=== PATIENT | male | born 1965 | race Hispanic/Latino ===

== ENCOUNTER → 2019-01-12 | Day surgery (SDC) | payer OTHER ==
[~2019-01-12] MED LIST: ACETAMINOPHEN 1000 MG/100 ML IV ONE; BALANCED SALT SOLN (OPTH) 15 ML BTL IO ONE; FENTANYL CITRATE/PF 100MCG/2 ML INJ ONE; KETOROLAC TROMETHAMINE 30 MG/ML VIAL ONE; LIDOCAINE 2%/ EPINEPHRINE 20ML MDV ONE; MIDAZOLAM HCL 2 MG/2 ML VIAL ONE; NEOMYCIN/POLYMYXIN/DEX (OPTH) 3.5 GM TUBE ONE; POVIDONE IODINE 5% (OPTH) 30 ML BTL ONE
--- OUTSIDE RECORDS SUMMARY | 2019-01-12 14:33 | XMS REPORT | Summary of Care ---
Author Author [facility] - Health Organization [facility] - Health Address Unknown Phone Unavailable Care Team Providers Care Cell Attendant Name Role Phone Toby Gomez PCP Reason for Visit * Reason Comments Forms clearance for eye surgery Encounter Details Care Team Description Date Type Department Everardo Jang MD [address] [facility] [id number] [place] [address] [phone] Forms (clearance for eye surgery) 12/25/2018 Telephone [facility], [address] [address] Allergies No Known Allergiesdocumented as of this encounter (statuses as of 12/28/2018) Medications End Date Status Medication Sig Dispensed Refills Start Date Active cyclobenzaprine 10 mg Take 1 tablet 30 tablet 0 tabletIndications: Neck by mouth 3 9 pain (three) times daily. Active meloxicam (MOBIC) 15 mg Take 1 tablet 30 tablet 1 tabletIndications: Neck by mouth 9 pain daily. Active Diclofenac Sodium Apply to 100 g 0 (VOLTAREN) 1 % area(s) every 9 gelIndications: Neck pain 6 (six) hours as needed (knee pain). documented as of this encounter (statuses as of 12/28/2018) Active Problems No known active problemsdocumented as of this encounter (statuses as of 12/28/2018) Immunizations Name Administration Dates Next Due Influenza Virus Vaccine 07/10/2018 Quad .5 mL IM 6+ MO Tdap 07/29/2018 documented as of this encounter Social History Date Tobacco Use Types Packs/Day Years Used Never Smoker Smokeless Tobacco: Never Used Drinks/Week oz/Week Comments Alcohol Use socially Yes Sex Assigned at Date Recorded Not on file Industry Job Start Date Occupation Not on file Not on file Not on file Travel End Travel History Travel Start No recent travel history available. documented as of this encounter Last Filed Vital Signs Not on filedocumented in this encounter Plan of Treatment Health Maintenance Due Date Last Done Comments Zoster Recombinant 2016 Vaccine (SHINGRIX) (1 of 2) INFLUENZA VACCINE (#1) 2019 07/10/2018 COLONOSCOPY 02/20/2026 02/21/2016 DTaP,Tdap,and Td Vaccines 07/29/2028 07/29/2018 (2 - Td) PNEUMOCOCCAL 0-64 YEARS Aged Out No longer eligible based COMBINED SERIES on patient's age to complete this topic documented as of this encounter Results Not on filedocumented in this encounter Insurance Type Payer Benefit Subscriber ID Effective Phone Address Plan / Dates Group O [facility] [id number] 2017-P [phone] [facility] [address] [place] [address] documented as of this encounter
--- OUTSIDE RECORDS SUMMARY | 2019-01-12 14:33 | XMS REPORT | Summary of Care ---
Author Author [facility] - Health Organization [facility] - Health Address Unknown Phone Unavailable Care Team Providers Care Wafer Cutter Name Role Phone Toby Gomez PCP Reason for Referral * (Routine) Referred By Contact Referred To Contact Status Reason Specialty Diagnoses / Procedures Everardo Jang MD [address] [facility] [place] [address] Closed Cardiology Diagnoses Abnormal EKG Cardiac murmur P rocedures ECHO ROUTINE W/DOPPLER COLOR GA ECHO HEART XTHORACIC,COMPLETE W DOPPLER * (Routine) Referred By Contact Referred To Contact Status Reason Specialty Diagnoses / Procedures Everardo Jang MD [address] [facility] [place] [address] Closed Cardiology Diagnoses Abnormal EKG Cardiac murmur P rocedures ECHO ROUTINE W/DOPPLER COLOR GA ECHO HEART XTHORACIC,COMPLETE W DOPPLER Reason for Visit * (Routine) Referred By Contact Referred To Contact Status Reason Specialty Diagnoses / Procedures Everardo Jang MD [id number] [place] [address] Closed Cardiology Diagnoses Abnormal EKG Cardiac murmur P rocedures ECHO ROUTINE W/DOPPLER COLOR GA ECHO HEART XTHORACIC,COMPLETE W DOPPLER Encounter Details Care Team Description Date Type Department Everardo Jang MD [address] [place] [address] [phone] Echo, Clc-Bls Abnormal EKG; Cardiac murmur 12/04/2018 Hospital [facility] Health Encounter Echocardiograph Lab, [address] [place] [address] Allergies No Known Allergiesdocumented as of this encounter (statuses as of 12/05/2018) Medications End Date Status Medication Sig Dispensed [...] as of this encounter (statuses as of 12/05/2018) Active Problems No known active problemsdocumented as of this encounter (statuses as of 12/05/2018) Immunizations Name Administration Dates Next Due Influenza [...] of this encounter Last Filed Vital Signs Reading Time Taken Comments Vital Sign 104/54 12/04/2018 3:26 PM CDT Blood Pressure 44 12/04/2018 3:26 PM CDT Pulse - - Temperature - - Respiratory Rate - - Oxygen Saturation - - Inhaled Oxygen Concentration 71.2 kg (157 lb) 12/04/2018 3:26 PM CDT Weight 167.6 cm (5' 6") 12/04/2018 3:26 PM CDT Height 25.34 12/04/2018 3:26 PM CDT Body Mass Index documented in this encounter Plan of Treatment Health Maintenance Due Date Last Done Comments Zoster Recombinant 2016 Vaccine (SHINGRIX) (1 of 2) INFLUENZA VACCINE 01/10/2019 07/10/2018 COLONOSCOPY 02/20/2026 02/21/2016 DTaP,Tdap,and Td Vaccines 07/29/2028 07/29/2018 (2 - Td) PNEUMOCOCCAL 0-64 YEARS Aged Out No longer eligible based COMBINED SERIES on patient's age to complete this topic documented as of this encounter Procedures Comments Procedure Name Priority Date/Time Associated Diagnosis ECHO ROUTINE W/DOPPLER Routine 12/04/2018 Abnormal EKG COLOR 3:35 PM CDT Cardiac murmur documented in this encounter Results * ECHO ROUTINE W/DOPPLER COLOR (12/04/2018 3:35 PM CDT) Specimen Performing Organization Address [facility] documented in this encounter Visit Diagnoses Diagnosis Abnormal EKG Nonspecific abnormal electrocardiogram (ECG) (EKG) Cardiac murmur Undiagnosed cardiac murmurs documented in this encounter Insurance Type Payer Benefit Subscriber ID Effective Phone Address Plan / Dates Group [facility] [id number] 2017-P [phone] [address] [facility] [id number] [place] [address] documented as of this encounter
--- OUTSIDE RECORDS SUMMARY | 2019-01-12 14:33 | XMS REPORT | Summary of Care ---
Author Author [facility] - Health Organization [facility] - Health Address Unknown Phone Unavailable Care Team Providers Care Bus Escort Name Role Phone Toby Gomez PCP Reason for Visit * Reason Comments Forms surgery clearance Encounter Details Care Team Description Date Type Department Everardo Jang MD [address] [facility] [id number] [place] [address] [phone] Forms (surgery clearance) 12/30/2018 Telephone [facility] Cardiology, [address] [phone] Allergies No Known Allergiesdocumented as of this encounter (statuses as of 12/30/2018) Medications End Date Status Medication Sig Dispensed [...] as of this encounter (statuses as of 12/30/2018) Active Problems No known active problemsdocumented as of this encounter (statuses as of 12/30/2018) Immunizations Name Administration Dates Next Due Influenza [...] Phone Address Plan / Dates Group O [facility] [id number] 2017-P [phone] [facility] [address] [place] [address] documented as of this encounter
--- OUTSIDE RECORDS SUMMARY | 2019-01-12 14:33 | XMS REPORT | Summary of Care ---
Author Author [facility] - Health Organization [facility] - Health Address Unknown Phone Unavailable Care Team Providers Care Land Surveyor Manager Name Role Phone Toby Gomez PCP Reason for Visit * Reason Comments Results Encounter Details Care Team Description Date Type Department Everardo Jang MD [address] [facility] [id number] [place], [place] [address] Results 12/15/[address] [phone] Allergies No Known Allergiesdocumented as of this encounter (statuses as of 12/15/2018) Medications End Date Status Medication Sig Dispensed [...] as of this encounter (statuses as of 12/15/2018) Active Problems No known active problemsdocumented as of this encounter (statuses as of 12/15/2018) Immunizations Name Administration Dates Next Due Influenza [...] Effective Phone Address Plan / Dates Group [facility] [id number] 2017-P [phone] [address] [facility] [id number] [place] [address] documented as of this encounter
--- OUTSIDE RECORDS SUMMARY | 2019-01-12 14:33 | XMS REPORT ---
Author Author [facility] Address Unknown Phone Unavailable Care Team Providers Care Jewel Blocker And Sawyer Name Role Phone Unavailable Unavailable Problems This patient has no known problems. Allergies, Adverse Reactions, Alerts This patient has no known allergies or adverse reactions. Medications This patient has no known medications.
[2019-01-12 17:25] VITALS: BP 132/81
--- NOTE | 2019-01-23 00:31 | Operative Report ---
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 PROCEDURES: 1. Pterygium excision, right eye, nasal. 2. Amniotic membrane graft placement in the right eye, nasal. 3. Superficial keratectomy, right eye, nasal. 4. Mitomycin-C 0.25 mg/mL, right eye, nasal for 60 seconds. ANESTHESIA: MAC. COMPLICATIONS: None. DESCRIPTION OF PROCEDURE: The patient was taken to the operating room, where they had tetracaine drops placed on the right eye. The patient's eye was prepped and draped in the usual sterile ophthalmic way. A lid speculum was placed in the right eye. A 6-0 sterile stay suture was placed at the limbus temporarily and the pterygium was localized. It was marked using a marking pen and 0.2 mL of lidocaine with 2% epinephrine were injected into the pterygium. A 0.12 forceps and Lowell scissors were used to remove the pterygium away from the sclera and cornea. This was then sent to pathology. Wet-field was used to control any bleeding. Once this was removed, cottonoid soaked in mitomycin 0.25 mg/mL placed at the edge of the conj for 60 seconds. Copious amounts of BSS solution were used to this excess mitomycin from the eye. A bur was used to perform a superficial keratectomy and removed the residual debris from the cornea. The amniotic membrane was cut to size and it measured 10 x 15 mm, it was secured using fibrin and thrombin glue, and excess glue and tissue were cut size with Lowell scissors. The amniotic graft was [id number], expiration, 06/18/2020. Nico Howard MD SES/MODL /[id number]
== END | disposition home or self-care (01) ==
LOC: OR 14:30
PROVIDERS: ATTEND Ophthalmology
DX: H11.051 Peripheral pterygium, progressive, right eye (principal)
CPT/HCPCS: 65426; 88304; J0131; J1885; J2001; J2250; J3010; V2790